=== PATIENT | female | born 1980 | race American Indian/Alaskan Native ===

== ENCOUNTER 2018-09-19 09:30 | Emergency (ER) | payer OTHER ==
[2018-09-19] MEDS ORDERED: IBUPROFEN PO ONE (11:32)
[2018-09-19] MEDS ORDERED: NORCO 10/325 PO ONE (11:33)
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
--- NOTE | 2018-09-19 12:26 | XRay Report ---
LUMBOSACRAL SPINE, 3 VIEWS: History: Back pain Findings: The vertebral bodies, disk spaces and posterior elements are intact. No compression deformity or malalignment. The SI joints are symmetric and unremarkable. Impression: 1. No evidence for acute injury to the lumbar spine.
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
--- NOTE | 2018-09-19 12:27 | XRay Report ---
CERVICAL SPINE, 3 views: History: Neck pain. Findings: The vertebral bodies, disk spaces, posterior elements and prevertebral soft tissues are intact. The dens is intact. No acute fracture or malalignment is identified. Mild degenerative disc disease with anterior spurring is identified at C4-5 and C5-6. Impression: Mild degenerative disc disease at C4-5 and C5-6. No evidence for acute injury to the cervical spine.
[2018-09-19 13:37] VITALS: BP 116/74
== END 2018-09-19 12:44 | disposition home or self-care (01) ==
LOC: ED 09:30
DX: S00.03XA Contusion of scalp, initial encounter (principal); S13.4XXA Sprain of ligaments of cervical spine, initial encounter; S39.012A Strain of muscle, fascia and tendon of lower back, initial encounter; S86.911A Strain of unspecified muscle(s) and tendon(s) at lower leg level, right leg, initial encounter; S86.912A Strain of unspecified muscle(s) and tendon(s) at lower leg level, left leg, initial encounter; V49.9XXA Car occupant (driver) (passenger) injured in unspecified traffic accident, initial encounter; Y93.89 Activity, other specified; Y99.8 Other external cause status; Y92.410 Unspecified street and highway as the place of occurrence of the external cause
CPT/HCPCS: 70450; 72040; 72100